=== PATIENT | female | born 1980 | race Caucasian/White ===

== ENCOUNTER → 2018-08-13 11:16 | Outpatient (CLI) | payer OTHER, SELFPAY ==
[2018-08-13 13:13] LABS: Free T3, Triiodothyronine Free 3.22 pg/mL (2.77-5.27); Free T4, Direct Thyroxine 0.82 ng/dL (0.78-2.19)
[2018-08-13 13:26] LABS: Thyroid Stimulating Hormone 1.38 uIU/mL (0.47-4.68)
== END ==
PROVIDERS: Visit Provider Specialist
DX: R53.83 Other fatigue (principal); L65.9 Nonscarring hair loss, unspecified
CPT/HCPCS: 36415; 84439; 84443; 84481

== ENCOUNTER → 2018-10-17 10:10 | Outpatient (CLI) | payer OTHER, SELFPAY | PROVIDERS: Visit Provider Specialist | DX: R68.82 Decreased libido (principal) | CPT/HCPCS: 36415; 84402 ==

== ENCOUNTER → 2019-10-04 11:15 | Outpatient (CLI) | payer OTHER, SELFPAY ==
[2019-10-05 18:08] LABS: COVID19 Sendout Not Detected (Not Detect)
== END ==
PROVIDERS: Visit Provider Physician Assistant
DX: Z11.59 Encounter for screening for other viral diseases (principal)
CPT/HCPCS: 87635

== ENCOUNTER 2019-10-07 12:42 | Day surgery (SDC) | payer OTHER, SELFPAY ==
--- NOTE | 2019-10-07 | PATH_ITS ---
[facility] Accession Number: [id number] . 01 Material submitted: . duodenum - DUODENAL BIOPSY . 01 Clinical history: . A: DUODENAL BIOPSY RULE OUT CELIAC . 02 Diagnosis: Duodenal Biopsy: Superficial portions of small bowel mucosa with no significant histomorphologic abnormality. Negative for active inflammation, granulomas, regions of dysplasia or malignancy. MRV 10/08/2019 1527 Local . 02 Electronically signed: . Camille Harrell MD, Pathologist NPI- [id number] . 01 Gross description: . DUODENAL BIOPSY: Received in formalin are 3 fragment(s) of hanks, soft tissue measuring 0.1 x 0.1 x 0.1 cm to 0.3 x 0.2 x 0.2 cm submitted entirely in 1 cassette(s) /STIVEN 10/08/2019 0151 Local . 02 Pathologist provided ICD-10: R10.12, R06.02, K30 . 02 CPT . 340899 Performed at: 01 [facility] [address], [place], [place] [id number] MD Phuc Bonilla MD Phone: [phone] Performed at: 02 [facility] [address] [place], [place] [id number] MD Citlali Mccauley MD Phone: [phone]
[2019-10-07 14:06] VITALS: BP 126/63; PULSE 73; RESP 16; TEMP 36.7; O2SAT 100; BMI 23.5
[2019-10-07] MEDS: LACTATED RINGERS 1,000 ML 200 ML IV (14:28)
--- NOTE | 2019-10-07 14:46 | PM.PREOP ---
Pre-operative Note COVID-19 COVID-19 status: Negative Interval Note History & Physical reviewed/Exam performed by Physician: Yes Changes to H&P: No ASA Class (for procedural sedation): I
--- NOTE | 2019-10-07 14:59 | P.OP.ENDO_ITS ---
Operative Date/Time/Diagnoses Date of procedure: 10/07/19 Procedure & Clinicians Study performed: EGD with biopsy Moderate conscious sedation was administered by the endoscopy nurse and supervised by the endoscopist. The following parameters were monitored: Oxygen saturation, heart rate, blood pressure, and response to care. 7mg midazolam and 100mcg fentanyl given. Same procedure as scheduled: Yes Indications: GERD, dyspepsia, left upper quadrant pain Procedure Notes Procedure in detail: Prior to the procedure, history and physical was performed, and patient medications and allergies were reviewed. Preprocedure nursing history and assessment was reviewed. Patient identification and proposed procedure were verified by the physician and nurse in the procedure room. The physical status of the patient was reassessed after the procedure. After informed consent was obtained including risks, benefits, and alternatives, the scope was passed under direct vision. Throughout the procedure, the patient's blood pressure, pulse, and oxygen saturations were monitored continuously. The upper endoscope was introduced through the mouth and advanced to the 2nd portion of the duodenum. Retroflexion was performed in the stomach. The patient tolerated the procedure well. No gross lesions were seen on limited view of the posterior pharynx. The entire examined esophagus was normal appearing. The squamocolumnar junction was regular and was located at 40 cm. A small sliding hiatal hernia was noted. Stomach was otherwise normal dayanara earing. Normal appearing duodenum and ampulla. Biopsies taken to rule out celiac sprue. Impression: Normal appearing esophagus Small hiatal hernia. The stomach was otherwise normal appearing. Normal appearing duodenum. Biopsied Sedation minutes: 10 Complications: other (EBL minimal. No complications) Post-procedure Plan for aftercare: Follow-up pathology results Resume previous diet Resume home medications Follow up in GI clinic as previously recommended Patient has a contact number available for emergencies. The signs and symptoms of potential delayed complications were discussed with the patient. Return to normal activities tomorrow. Written discharge instructions were provided to the patient. Discharge home with escort
[2019-10-07] MEDS: MIDAZOLAM 5 MG/5 ML VIAL IV (15:02)
[2019-10-07] MEDS: fentaNYL 250 MCG/5 ML INJ IV (15:03)
[2019-10-07 15:04] VITALS: BP 104/69; PULSE 67; RESP 15; TEMP 36.6; O2SAT 95
[2019-10-07 15:10] VITALS: BP 101/63; PULSE 69; RESP 13; O2SAT 96
[2019-10-07 15:15] VITALS: BP 101/67; PULSE 70; RESP 13; TEMP 36.9; O2SAT 96
[2019-10-07 15:20] VITALS: BP 105/72; PULSE 69; RESP 20; TEMP 36.8; O2SAT 98
--- NOTE | 2019-10-07 15:59 | SUR.PHASEII ---
1520 drowsy, oriented, reading discharge instructions. Disappointed, yet relieved at no findings. Preparing for discharge
== END 2019-10-07 15:31 | disposition home or self-care (01) ==
PROVIDERS: PCP Physician Assistant Medical; Referring Provider Internal Medicine; Visit Provider Internal Medicine
PROC: 0DJ08ZZ Inspection of Upper Intestinal Tract, Via Natural or Artificial Opening Endoscopic (ICD-10-PCS; CPT 43235; principal; 2019-10-07 14:30)
DX: K44.9 Diaphragmatic hernia without obstruction or gangrene (principal); K21.9 Gastro-esophageal reflux disease without esophagitis; R06.02 Shortness of breath; K30 Functional dyspepsia; R10.12 Left upper quadrant pain
CPT/HCPCS: 43239; J2250; J3010